=== PATIENT | male | born 1955 | race Caucasian/White ===

== ENCOUNTER 2018-11-12 04:56 | Emergency (ER) | payer MEDICARE ==
[~2018-11-12] VITALS: Ht 177.8 cm; Wt 106.8 kg
[2018-11-12 05:03] VITALS: BP 109/59; Ht 177.8 cm; Wt 106.8 kg
[2018-11-12] MEDS ORDERED: ADVAIR HFA [SP]12 GM INH (05:05)
[2018-11-12] MEDS ORDERED: TRULICITY0.75 MG/0. SC (05:05)
[2018-11-12] MEDS ORDERED: GLIPIZIDE10 MG PO (05:06)
[2018-11-12] MEDS ORDERED: JANUVIA100 MG PO (05:06)
[2018-11-12] MEDS ORDERED: CRESTOR10 MG PO (05:06)
[2018-11-12 05:30] LABS: HEMATOCRIT 41.7 % (42.0-54.0); HEMOGLOBIN 14.8 g/dL (13.5-17.5); LYMPHOCYTES 35.3 % (15-50); MCH 32.9 pg (26.0-34.0); MCHC 35.5 g/dL (31.0-37.0); MCV 92.7 fL (80.0-100.0); MEAN PLATELET VOLUME 9.4 fL (7.4-10.4); NEUTROPHILS 53.2 % (40-80); PLATELET COUNT 51 10x3/uL (130-400); RDW 15.3 % (11.5-14.5); WBC 4.4 10x3/uL (4.8-10.8)
[2018-11-12 05:50] LABS: ALBUMIN 2.9 g/dL (3.4-5.0); ALKALINE PHOSPHATASE 77 U/L (46-116); ALT (SGPT) 9 U/L (10-68); BILIRUBIN - TOTAL 1.54 mg/dL (0.2-1.3); CALC OSMOLALITY 280 mosm/kg (275-300); CALCIUM 9.3 mg/dL (8.5-10.1); CARBON DIOXIDE 21.2 mmol/L (21.0-32.0); CHLORIDE - SERUM 106 mmol/L (98-107); CREATININE - SERUM 0.7 mg/dL (0.6-1.3); GLUCOSE 112 mg/dL (74-106); POTASSIUM - SERUM 3.8 mmol/L (3.5-5.1); PROTEIN - SERUM 7.5 g/dL (6.4-8.2); SODIUM 140 mmol/L (136-145); UREA NITROGEN 15 mg/dL (7-18); eGFR NON AFRICAN AMERICAN > 90 mL/min (90-120)
[2018-11-12 05:51] LABS: PLATELET ESTIMATE DECREASED
[2018-11-12] MEDS ORDERED: CHRONULAC30 ML PO (06:28)
== END 2018-11-12 06:54 | disposition home or self-care (01) ==
LOC: D.ER 04:56
PROVIDERS: Emergency Medicine
DX: R10.9 Unspecified abdominal pain (principal); E72.20 Disorder of urea cycle metabolism, unspecified; F03.90 Unspecified dementia, unspecified severity, without behavioral disturbance, psychotic disturbance, mood disturbance, and anxiety; E11.9 Type 2 diabetes mellitus without complications; J44.9 Chronic obstructive pulmonary disease, unspecified

== ENCOUNTER 2018-12-24 23:35 | Inpatient (IN) | payer MEDICARE ==
[~2018-12-24] VITALS: Ht 177.8 cm; Wt 103.2 kg
[~2018-12-24 23:35] MED LIST: ADVAIR HFA [SP]12 GM INH; CHRONULAC30 ML PO; CRESTOR10 MG PO; GLIPIZIDE10 MG PO; JANUVIA100 MG PO; TRULICITY0.75 MG/0. SC
[2018-12-25] VITALS (21 sets, daily range): BP systolic 103–153; BP diastolic 53–90; BMI 33.2; BMI 33.1
[2018-12-25 00:59] LABS: HEMATOCRIT 42.4 % (42.0-54.0); HEMOGLOBIN 14.7 g/dL (13.5-17.5); MCH 32.2 pg (26.0-34.0); MCHC 34.7 g/dL (31.0-37.0); MCV 92.8 fL (80.0-100.0); MEAN PLATELET VOLUME 11.4 fL (7.4-10.4); PLATELET COUNT 38 10x3/uL (130-400); RBC 4.57 10x6/uL (4.20-6.10); RDW 14.4 % (11.5-14.5)
[2018-12-25 01:13] LABS: ALBUMIN 2.8 g/dL (3.4-5.0); ALKALINE PHOSPHATASE 77 U/L (46-116); ALT (SGPT) 32 U/L (10-68); BILIRUBIN - TOTAL 1.67 mg/dL (0.2-1.3); CALC OSMOLALITY 279 mosm/kg (275-300); CALCIUM 8.3 mg/dL (8.5-10.1); CARBON DIOXIDE 25.4 mmol/L (21.0-32.0); CHLORIDE - SERUM 103 mmol/L (98-107); CREATININE - SERUM 0.7 mg/dL (0.6-1.3); GLUCOSE 169 mg/dL (74-106); PROTEIN - SERUM 7.2 g/dL (6.4-8.2); SODIUM 139 mmol/L (136-145); UREA NITROGEN 8 mg/dL (7-18); eGFR NON AFRICAN AMERICAN > 90 mL/min (90-120)
[2018-12-25 01:24] LABS: INR 5.91 (0.85-1.17)
[2018-12-25 01:38] LABS: EOSINOPHILS 3 % (0-7); LYMPHOCYTES 21 % (15-50); MONOCYTES 6 % (2-11); NEUTROPHILS 68 % (40-80); PLATELET ESTIMATE DECREASED; PLATELET MORPHOLOGY GIANT PLTS PRESENT
[2018-12-25 07:06] LABS: HEMATOCRIT 37.4 % (42.0-54.0); HEMOGLOBIN 13.1 g/dL (13.5-17.5); MCH 32.3 pg (26.0-34.0); MCV 92.3 fL (80.0-100.0); MEAN PLATELET VOLUME 9.1 fL (7.4-10.4); RBC 4.05 10x6/uL (4.20-6.10); RDW 14.5 % (11.5-14.5)
[2018-12-25 07:07] LABS: WBC 3.3 10x3/uL (4.8-10.8)
[2018-12-25 07:09] LABS: PLATELET COUNT 48 10x3/uL (130-400)
[2018-12-25 07:18] LABS: MAGNESIUM - SERUM 1.6 mg/dL (1.8-2.4); PHOSPHOROUS 2.6 mg/dL (2.5-4.9)
[2018-12-25 07:20] LABS: APTT 33.7 SECONDS (22.8-39.4)
[2018-12-25 07:26] LABS: INR 1.29 (0.85-1.17); PROTIME 15.6 SECONDS (11.6-15.0)
[2018-12-25 08:31] LABS: EOSINOPHILS 4 % (0-7); LYMPHOCYTES 20 % (15-50); MONOCYTES 7 % (2-11); NEUTROPHILS 61 % (40-80)
[2018-12-25 08:32] LABS: PLATELET ESTIMATE DECREASED
--- NOTE | 2018-12-25 15:30 | MORECARE ---
CASE MANAGEMENT DISCHARGE SUMMARY PATIENT: KESHA QUINONEZ UNIT: [id number] ADM DATE: 12/25/18 AGE: 63 : 53 SEX: M ROOM/BED: D.2312 AUTHOR: ROMAINE ESCALANTE PHYSICIAN: REFERRING PHYSICIAN: ALEXA THIBODEAUX MD DATE OF SERVICE: 12/25/18 Discharge Plan Patient Name: KESHA QUINONEZ [facility] [facility] 1955 Planned Disposition: Home Anticipated Discharge Date: Discharge Date: Expected LOS: Initial Reviewer: [email or web address] Initial Review Date: 12/25/2018 Generated: 12/25/18 4:30 pm DCPIA - Discharge Planning Initial Assessment Updated by [email or web address]: Rani Sosa on 12/25/18 3:24 pm * Is the patient Alert and Oriented? Yes * How many steps to enter\exit or inside your home? * PCP KESHAWN REYES * Pharmacy [facility] * Preadmission Environment Home with Family * ADLs Independent * Equipment CPAP * List name and contact numbers for known caregivers / representatives who currently or will assist patient after discharge: YASMINE JAY- - [phone] * Verbal permission to speak to the caregivers and representatives has been obtained from the patient. N/A * Community resources currently utilized None * Additional services required to return to the preadmission environment? No * Can the patient safely return to the preadmission environment? Yes * Has this patient been hospitalized within the prior 30 days at any hospital? No Patient Name: KESHA QUINONEZ Page 22884 at 1530 All edits/amendments must be made on the electronic document DICTATION DATE: 12/25/18 1530 EDGE BLACKER: KAY 12/25/18 1530 RPT#: [id number] DC DATE: STATUS: ADM IN [facility] [address] [place] [address] END OF REPORT
--- NOTE | 2018-12-25 15:39 | MORECARE ---
CASE MANAGEMENT DISCHARGE SUMMARY PATIENT: KESHA QUINONEZ UNIT: [id number] ADM DATE: 12/25/18 AGE: 63 : 53 SEX: M ROOM/BED: D.2312 AUTHOR: AVA,DOC PHYSICIAN: REFERRING PHYSICIAN: ALEXA THIBODEAUX MD DATE OF SERVICE: 12/25/18 Discharge Plan Patient Name: KESHA QUINONEZ Facility: [facility]:[place] : 1955 Planned Disposition: Home Anticipated Discharge Date: Discharge Date: Expected LOS: Initial Reviewer: [email or web address] Initial Review Date: 12/25/2018 Generated: 12/25/18 4:39 pm Comments DCP- Discharge Planning Updated by [email or web address]: Rani Sosa on 12/25/18 2:[address] Patient Name: KESHA QUINONEZ Admission Status: ER Accout number: [id number] Admission Date: 12-25-2018 : 1955 Admission Diagnosis:NONTRAUMATIC SUBARACHNOID HEMORRHAGE, UNSPECIFIED Attending: ALEXA SCHNEIDER Current LOS: 1 Anticipated DC Date: Planned Disposition: Home Primary Insurance: HU[employer]NA CHOICE PPO MCR ADVANT Discharge Planning Comments: CM met with patient at bedside. Patient states he lives at home with his Zhane. Patient states that he been trying to stop drinking recently. Patient states that he has CPAP at home but hasn't needed it as much since he has stopped drinking. Patient denies any home health services prior to admission. Patient denies any discharge needs. CM will continue to follow and assist as needed with discharge planning/ needs. Biodiesel Division Manager: Rani Sosa DCPIA - Discharge Planning Initial Assessment Updated by [email or web address]: Rani Sosa on 12/25/18 3:24 pm * Is the patient Alert and Oriented? Yes * How many steps to enter\exit or inside your home? * PCP KESHAWN REYES * Pharmacy [facility] * Preadmission Environment Home with Family * ADLs Independent * Equipment CPAP * List name and contact numbers for known caregivers / representatives who currently or will assist patient after discharge: ZHANE JAY- - [phone] * Verbal permission to speak to the caregivers and representatives has been obtained from the patient. N/A * Community resources currently utilized None * Additional services required to return to the preadmission environment? No * Can the patient safely return to the preadmission environment? Yes * Has this patient been hospitalized within the prior 30 days at any hospital? No Last DP export: 12/25/18 2:30 p Patient Name: KESHA QUIONNEZ Page 94476 at 1539 All edits/amendments must be made on the electronic document DICTATION DATE: 12/25/181537 ACCOUNTS PAYABLE PROFESSIONAL: DM 12/25/181537 RPT#: [id number] DC DATE: STATUS: ADM IN [facility] [address] [place] [address] END OF REPORT
[2018-12-26] VITALS (21 sets, daily range): BP systolic 115–151; BP diastolic 52–76; Ht 177.8 cm; Wt 103.2 kg
[2018-12-26 04:08] LABS: BASOPHILS 0.3 % (0-2); EOSINOPHILS 2.7 % (0-7); HEMATOCRIT 35.8 % (42.0-54.0); HEMOGLOBIN 12.3 g/dL (13.5-17.5); LYMPHOCYTES 25.7 % (15-50); MCH 31.9 pg (26.0-34.0); MCHC 34.4 g/dL (31.0-37.0); NEUTROPHILS 59.3 % (40-80); RBC 3.85 10x6/uL (4.20-6.10); RDW 14.6 % (11.5-14.5); WBC 3.3 10x3/uL (4.8-10.8)
[2018-12-26 04:13] LABS: PLATELET COUNT 43 10x3/uL (130-400)
[2018-12-26 04:20] LABS: CALC OSMOLALITY 279 mosm/kg (275-300); CALCIUM 7.8 mg/dL (8.5-10.1); CARBON DIOXIDE 22.8 mmol/L (21.0-32.0); CHLORIDE - SERUM 106 mmol/L (98-107); CREATININE - SERUM 0.8 mg/dL (0.6-1.3); GLUCOSE 148 mg/dL (74-106); POTASSIUM - SERUM 3.7 mmol/L (3.5-5.1); SODIUM 139 mmol/L (136-145); eGFR NON AFRICAN AMERICAN > 90 mL/min (90-120)
[2018-12-26 04:21] LABS: UREA NITROGEN 11 mg/dL (7-18)
[2018-12-27] VITALS (22 sets, daily range): BP systolic 112–145; BP diastolic 66–95
[2018-12-27 02:58] LABS: BASOPHILS 0.3 % (0-2); EOSINOPHILS 2.1 % (0-7); HEMATOCRIT 35.7 % (42.0-54.0); HEMOGLOBIN 12.5 g/dL (13.5-17.5); LYMPHOCYTES 22.4 % (15-50); MCH 32.4 pg (26.0-34.0); MCV 92.5 fL (80.0-100.0); MEAN PLATELET VOLUME 9.4 fL (7.4-10.4); MONOCYTES 10.9 % (2-11); NEUTROPHILS 64.3 % (40-80); RBC 3.86 10x6/uL (4.20-6.10); RDW 14.3 % (11.5-14.5); WBC 3.3 10x3/uL (4.8-10.8)
[2018-12-27 03:02] LABS: PLATELET COUNT 40 10x3/uL (130-400)
[2018-12-27 03:23] LABS: ALBUMIN 2.5 g/dL (3.4-5.0); ALKALINE PHOSPHATASE 76 U/L (46-116); ALT (SGPT) 46 U/L (10-68); BILIRUBIN - TOTAL 1.13 mg/dL (0.2-1.3); CALC OSMOLALITY 280 mosm/kg (275-300); CALCIUM 8.1 mg/dL (8.5-10.1); CHLORIDE - SERUM 105 mmol/L (98-107); CREATININE - SERUM 0.8 mg/dL (0.6-1.3); POTASSIUM - SERUM 3.7 mmol/L (3.5-5.1); PRO BNP 164 pg/mL (0-125); PROTEIN - SERUM 6.4 g/dL (6.4-8.2); SODIUM 137 mmol/L (136-145); THYROID STIMULATING HORMONE 1.54 uIU/mL (0.36-3.74); UREA NITROGEN 10 mg/dL (7-18); eGFR NON AFRICAN AMERICAN > 90 mL/min (90-120)
[2018-12-27 03:27] LABS: GLUCOSE 236 mg/dL (74-106); PLATELET ESTIMATE DECREASED
[2018-12-27] MEDS ORDERED: CARBIDOPA-LEVO1 EAC2 (11:58)
[2018-12-27] MEDS ORDERED: CARBIDOPA-LEVO1 EAC2 PO (11:59)
[2018-12-28] VITALS (8 sets, daily range): BP systolic 102–127; BP diastolic 58–78
[2018-12-28 06:36] LABS: ALBUMIN 2.5 g/dL (3.4-5.0); ALKALINE PHOSPHATASE 80 U/L (46-116); BILIRUBIN - TOTAL 1.12 mg/dL (0.2-1.3); CALCIUM 8.5 mg/dL (8.5-10.1); CARBON DIOXIDE 25.1 mmol/L (21.0-32.0); CHLORIDE - SERUM 107 mmol/L (98-107); CREATININE - SERUM 0.7 mg/dL (0.6-1.3); MAGNESIUM - SERUM 1.7 mg/dL (1.8-2.4); PHOSPHOROUS 3.6 mg/dL (2.5-4.9); POTASSIUM - SERUM 3.9 mmol/L (3.5-5.1); PROTEIN - SERUM 6.5 g/dL (6.4-8.2); SODIUM 141 mmol/L (136-145); UREA NITROGEN 10 mg/dL (7-18); eGFR NON AFRICAN AMERICAN > 90 mL/min (90-120)
[2018-12-28 06:39] LABS: ALT (SGPT) 15 U/L (10-68); CALC OSMOLALITY 283 mosm/kg (275-300); GLUCOSE 172 mg/dL (74-106)
[2018-12-28 06:51] LABS: HEMOGLOBIN 12.7 g/dL (13.5-17.5); MCH 32.2 pg (26.0-34.0); MCHC 34.3 g/dL (31.0-37.0); MCV 93.7 fL (80.0-100.0); MEAN PLATELET VOLUME 10.2 fL (7.4-10.4); RBC 3.95 10x6/uL (4.20-6.10); RDW 14.8 % (11.5-14.5); WBC 3.1 10x3/uL (4.8-10.8)
[2018-12-28 06:52] LABS: PLATELET COUNT 50 10x3/uL (130-400)
[2018-12-28 08:56] LABS: EOSINOPHILS 2 % (0-7); LYMPHOCYTES 16 % (15-50); MONOCYTES 8 % (2-11); NEUTROPHILS 71 % (40-80); PLATELET ESTIMATE DECREASED
--- NOTE | 2018-12-28 16:27 | MORECARE ---
CASE MANAGEMENT DISCHARGE SUMMARY PATIENT: KESHA QUINONEZ UNIT: [id number] ADM DATE: 12/25/18 AGE: 63 : 53 SEX: M ROOM/BED: D.2312 AUTHOR: AVA,DOC PHYSICIAN: REFERRING PHYSICIAN: ALEXA THIBODEAUX MD DATE OF SERVICE: 12/28/18 Discharge Plan Patient Name: KESHA QUINONEZ Facility: [facility]:[place] : 1955 Planned Disposition: Home Anticipated Discharge Date: Discharge Date: 12/28/2018 Expected LOS: Initial Reviewer: [email or web address] Initial Review Date: 12/25/2018 Generated: 12/28/18 5:27 pm Comments DCP- Discharge Planning Updated by [email or web address]: Rani Sosa on 12/25/18 2:[address] Patient Name: KESHA QUINONEZ Admission Status: ER Accout number: [id number] Admission Date: 12-25-2018 : 1955 Admission Diagnosis:NONTRAUMATIC SUBARACHNOID HEMORRHAGE, UNSPECIFIED Attending: ALEXA SCHNEIDER Current LOS: 1 Anticipated DC Date: Planned Disposition: Home Primary Insurance: HU[employer]NA CHOICE PPO MCR ADVANT Discharge Planning Comments: CM met with patient at bedside. Patient states he lives at home with his Zhane. Patient states that he been trying to stop drinking recently. Patient states that he has CPAP at home but hasn't needed it as much since he has stopped drinking. Patient denies any home health services prior to admission. Patient denies any discharge needs. CM will continue to follow and assist as needed with discharge planning/ needs. Assembler Fluorescent Lights: Rani Sosa DCPIA - Discharge Planning Initial Assessment Updated by [email or web address]: Rani Sosa on 12/25/18 3:24 pm * Is the patient Alert and Oriented? Yes * How many steps to enter\exit or inside your home? * PCP KESHAWN REYES * Pharmacy [facility] * Preadmission Environment Home with Family * ADLs Independent * Equipment CPAP * List name and contact numbers for known caregivers / representatives who currently or will assist patient after discharge: ZHANE JAY- - [phone] * Verbal permission to speak to the caregivers and representatives has been obtained from the patient. N/A * Community resources currently utilized None * Additional services required to return to the preadmission environment? No * Can the patient safely return to the preadmission environment? Yes * Has this patient been hospitalized within the prior 30 days at any hospital? No Last DP export: 12/25/18 2:39 p Patient Name: KESHA QUINONEZ Page 92507 at 1627 All edits/amendments must be made on the electronic document DICTATION DATE: 12/28/181626 DOG BATHER: KAY 12/28/181626 RPT#: [id number] DC DATE:12/28/18 STATUS: DIS IN [facility] [address] [place] [address] END OF REPORT
--- NOTE | 2018-12-28 19:00 | MORECARE ---
CASE MANAGEMENT DISCHARGE SUMMARY PATIENT: KESHA QUINONEZ UNIT: [id number] ADM DATE: 12/25/18 AGE: 63 : 51 SEX: M ROOM/BED: D.2312 AUTHOR: AVA,DOC PHYSICIAN: REFERRING PHYSICIAN: ALEXA THIBODEAUX MD DATE OF SERVICE: 12/28/18 Discharge Plan Patient Name: KESHA QUINONEZ Facility: [facility]:[place] : 1955 Planned Disposition: Home Anticipated Discharge Date: Discharge Date: 12/28/2018 Expected LOS: Initial Reviewer: [email or web address] Initial Review Date: 12/25/2018 Generated: 12/28/18 7:59 pm Comments DCP- Discharge Planning Updated by [email or web address]: Rani Sosa on 12/28/18 5:[address] D/C IMM EXPLAINED AND SERVED 12/28/18 @ [facility]. DENIES ANY DISCHARGE NEEDS. CM will continue to follow and assist as needed with discharge planning / needs. DCP- Discharge Planning Updated by [email or web address]: Rani Sosa on 12/25/18 2:[address] Patient Name: KESHA QUINONEZ Admission Status: ER Accout number: [id number] Admission Date: 12-25-2018 : 1955 Admission Diagnosis:NONTRAUMATIC SUBARACHNOID HEMORRHAGE, UNSPECIFIED Attending: ALEXA SCHNEIDER Current LOS: 1 Anticipated DC Date: Planned Disposition: Home Primary Insurance: HUMANA CHOICE PPO MCR [facility] Discharge Planning Comments: CM met with patient at bedside. Patient states he lives at home with his Zhane. Patient states that he been trying to stop drinking recently. Patient states that he has CPAP at home but hasn't needed it as much since he has stopped drinking. Patient denies any home health services prior to admission. Patient denies any discharge needs. CM will continue to follow and assist as needed with discharge planning/ needs. Mechanical Laboratory Technician: Rani Sosa DCPIA - Discharge Planning Initial Assessment Updated by [email or web address]: Rani Sosa on 12/25/18 3:24 pm * Is the patient Alert and Oriented? Yes * How many steps to enter\exit or inside your home? * PCP KESHAWN REYES * Pharmacy [facility] * Preadmission Environment Home with Family * ADLs Independent * Equipment CPAP * List name and contact numbers for known caregivers / representatives who currently or will assist patient after discharge: ZHANE JAY- - [phone] * Verbal permission to speak to the caregivers and representatives has been obtained from the patient. N/A * Community resources currently utilized None * Additional services required to return to the preadmission environment? No * Can the patient safely return to the preadmission environment? Yes * Has this patient been hospitalized within the prior 30 days at any hospital? No Coverage Notice Reviewer: [email or web address] Maria Luisa Sosa Notice Issued Date-Time: 12/28/2018 13:55 Notice Type: IM Discharge Notice Notice Delivered To: Patient Relationship to Patient: Self Metal Hanging Helper Name: Delivery Method: HAND - Hand Delivered Arlin Days: Prior Verbal Notification: Recipient Understood Notice: Yes Recipient Signature: Yes Med Rec Note Co-signed by Attending: Coverage Notice Comment: Last DP export: 12/28/18 3:27 p Patient Name: KESHA QUINONEZ Page 44465 at 1900 All edits/amendments must be made on the electronic document DICTATION DATE: 12/28/181858 HIGH PRESSURE BOILER OPERATOR: KAY 12/28/181858 RPT#: [id number] DC DATE:12/28/18 STATUS: DIS IN [facility] [address] [place] [address] END OF REPORT
[2018-12-29 10:22] LABS: HEPATITIS C ANTIBODY 0.1 S/CO RAT (0.0-0.9)
== END 2018-12-28 15:27 | disposition home or self-care (01) | DRG 83 ==
LOC: D.ER 23:35 → D.ICU 12-25 01:48
PROVIDERS: Family Medicine; Internal Medicine Hematology & Oncology; ADMIT Family Medicine Adult Medicine
PROC: 0HQ0XZZ Repair Scalp Skin, External Approach (ICD-10-PCS; principal; 2018-12-25)
DX: S06.6X9A Traumatic subarachnoid hemorrhage with loss of consciousness of unspecified duration, initial encounter (principal); D68.9 Coagulation defect, unspecified; S01.01XA Laceration without foreign body of scalp, initial encounter; W19.XXXA Unspecified fall, initial encounter; G20 Parkinson's disease; E78.5 Hyperlipidemia, unspecified; E11.9 Type 2 diabetes mellitus without complications; K70.30 Alcoholic cirrhosis of liver without ascites; J44.9 Chronic obstructive pulmonary disease, unspecified; D69.6 Thrombocytopenia, unspecified

== ENCOUNTER 2019-04-22 05:46 | Inpatient (IN) | payer MEDICARE ==
[~2019-04-22 05:46] MED LIST changes: +CARBIDOPA-LEVO1 EAC2; +CARBIDOPA-LEVO1 EAC2 PO
--- NOTE | 2019-04-22 06:02 | NUR ---
PT WITH C COLLAR IN PLACE UPON ARRIVAL. DENIES HEAD OR NECK INJURY.
--- NOTE | 2019-04-22 06:52 | NUR ---
URINE COLLECTED VIA HERNANDEZ CATH AND SENT TO LAB.
--- NOTE | 2019-04-22 06:52 | NUR ---
BLADDER SCANNER PER EDP. PT BLADDER SCANNED, AMOUNT 567 ML IN BLADDER.
[2019-04-22 07:00] LABS: BASOPHILS 0.2 % (0-2); EOSINOPHILS 2.2 % (0-7); HEMATOCRIT 43.2 % (42.0-54.0); HEMOGLOBIN 15.2 g/dL (13.5-17.5); LYMPHOCYTES 21.3 % (15-50); MCH 32.6 pg (26.0-34.0); MCHC 35.2 g/dL (31.0-37.0); MCV 92.7 fL (80.0-100.0); MEAN PLATELET VOLUME 10.3 fL (7.4-10.4); MONOCYTES 9.9 % (2-11); NEUTROPHILS 66.4 % (40-80); RBC 4.66 10x6/uL (4.20-6.10); RDW 14.7 % (11.5-14.5); WBC 4.9 10x3/uL (4.8-10.8)
--- NOTE | 2019-04-22 07:20 | NUR ---
TO CT VIA STRETCHER WITH VENTURE CAPITALIST
[2019-04-22 07:22] LABS: PLATELET COUNT 41 10x3/uL (130-400)
[2019-04-22 07:24] LABS: ALBUMIN 3.2 g/dL (3.4-5.0); ALKALINE PHOSPHATASE 63 U/L (46-116); ALT (SGPT) 38 U/L (10-68); BILIRUBIN - TOTAL 2.24 mg/dL (0.2-1.3); CALC OSMOLALITY 281 mosm/kg (275-300); CALCIUM 9.1 mg/dL (8.5-10.1); CARBON DIOXIDE 24.1 mmol/L (21.0-32.0); CHLORIDE - SERUM 105 mmol/L (98-107); GLUCOSE 141 mg/dL (74-106); MAGNESIUM - SERUM 1.9 mg/dL (1.8-2.4); POTASSIUM - SERUM 3.9 mmol/L (3.5-5.1); PROTEIN - SERUM 7.4 g/dL (6.4-8.2); SODIUM 140 mmol/L (136-145); UREA NITROGEN 15 mg/dL (7-18); eGFR NON AFRICAN AMERICAN 80 mL/min (90-120)
--- NOTE | 2019-04-22 07:24 | NUR ---
RCVD TC FROM LAB PLT COUNT= 41 DR BULLARD NOTIFIED
[2019-04-22 07:27] LABS: APPEARANCE TURBID (CLEAR); BILIRUBIN NEGATIVE (NEGATIVE); COLOR DK YELLOW (YELLOW); GLUCOSE NEGATIVE (NEGATIVE); KETONE SMALL mg/dL (NEGATIVE); NITRITE POSITIVE (NEGATIVE); PROTEIN TRACE mg/dL (NEGATIVE); SPECIFIC GRAVITY 1.015 (1.005-1.020); UROBILINOGEN NORMAL (NORMAL); WHITE CELLS - URINE 25-50 /hpf (0-5)
[2019-04-22 07:28] LABS: AMORPHOUS SEDIMENT >1+ /lpf (NONE SEEN); BACTERIA MODERATE /hpf (NONE SEEN); EPITHELIAL CELLS 0-5 /hpf (0-5); GRANULAR CAST RARE /lpf (NONE SEEN); MUCUS <1+ /lpf (NONE SEEN)
--- NOTE | 2019-04-22 07:35 | NUR ---
PT ARRIVED TO ROOM VIA STRETCHER FROM MEDICAL IMAGING. DENIES PAIN.
[2019-04-22 07:59] VITALS: BP 122/65
--- NOTE | 2019-04-22 08:16 | NUR ---
REPORT CALLED TO ANDRA BOUNRE BY SBAR FORMAT
--- NOTE | 2019-04-22 08:20 | NUR ---
TRANSPORTED TO FLOOR, CONDITION STABLE. ROCEPHIN INFUSING UPON TX TO FLOOR
[2019-04-22 08:35] LABS: PLATELET ESTIMATE DECREASED
[2019-04-22 08:36] LABS: ANISOCYTOSIS OCC
[2019-04-22 08:37] VITALS: BP 122/65; BMI 33.7
[2019-04-22 11:40] LABS: INR 1.33 (0.85-1.17); PROTIME 15.9 SECONDS (11.6-15.0)
[2019-04-22 11:41] LABS: APTT 41.6 SECONDS (22.8-39.4)
[2019-04-22 12:23] VITALS: BP 112/62
--- NOTE | 2019-04-22 14:26 | MORECARE ---
CASE MANAGEMENT DISCHARGE SUMMARY PATIENT: KESHA QUINONEZ UNIT: [id number] ADM DATE: 04/22/19 AGE: 63 : 53 SEX: M ROOM/BED: D.1208 AUTHOR: ROMAINE ESCALANTE PHYSICIAN: REFERRING PHYSICIAN: CORA LOPEZ MD DATE OF SERVICE: 04/22/19 Discharge Plan Patient Name: KESHA QUINONEZ Facility: [facility]:[place] : 1955 Planned Disposition: Anticipated Discharge Date: Discharge Date: Expected LOS: Initial Reviewer: [email or web address] Initial Review Date: 04/22/2019 Generated: 04/22/19 3:26 pm DCP- Discharge Planning Updated by [email or web address]: Erlinda Cooper on 04/22/19 1:[address] Patient Name: KESHA QUINONEZ Admission Status: ER Accout number: [id number] Admission Date: 04-22-2019 : 1955 Admission Diagnosis: Attending: CORA LOPEZ Current LOS: 1 Anticipated DC Date: Planned Disposition: Primary Insurance: HU[employer]NA CHOICE PPO MCR ADVANT Discharge Planning Comments: CM MET WITH PATIENT ABOUT DC NEEDS. PATIENT STATES PLANS TO DC TO HOME WITH . DENIES ANY NEEDS, CM WILL FOLLOW AND ASSIST NEEDED WITH DC PLANNING/NEEDS. Softball Core Molder: Erlinda Cooper DCPIA - Discharge Planning Initial Assessment Updated by [email or web address]: Erlinda Cooper on 04/22/19 2:23 pm * Is the patient Alert and Oriented? Yes * PCP KAUFMAN * Pharmacy [facility] * Preadmission Environment Home with Family * ADLs Independent * Equipment CPAP * List name and contact numbers for known caregivers / representatives who currently or will assist patient after discharge: KRISTEN UNDERWOOD, * Verbal permission to speak to the caregivers and representatives has been obtained from the patient. Yes * Community resources currently utilized None * Additional services required to return to the preadmission environment? No * Can the patient safely return to the preadmission environment? Yes * Has this patient been hospitalized within the prior 30 days at any hospital? No Patient Name: KESHA QUINONEZ Page 86543 at 1426 All edits/amendments must be made on the electronic document DICTATION DATE: 04/22/191424 CERTIFIED ORTHOTIC FITTER: KAY 04/22/191424 RPT#: [id number] DC DATE: STATUS: ADM IN [facility] [address] [place] [address] END OF REPORT
[2019-04-22 16:09] VITALS: BP 120/70
--- NOTE | 2019-04-22 19:30 | NUR ---
PT IN BATHROOM. DIARRHEA NOTED. ASSISTED BACK TO BED. PT TAKING CHRONULAC. ALERT AND ORIENTED X4. CONFUSED/FORGETFUL AT TIMES. GAIT IS VERY UNSTEADY. AMB WITH ASSIST X2. RESP EVEN AND NONLABORED. HERNANDEZ CATH PATENT AND DRAINING DARK YELLOW URINE. INCONT OF BOWELS AT TIMES. BRUISES NOTED TO BUE. NS @ 75 MLHR INFUSING IN LT HAND WITHOUT DIFF. SR ELEVATED X2. CL IN REACH.
[2019-04-22 20:00] VITALS: BP 105/61
[2019-04-22 20:05] VITALS: BP 105/61
[2019-04-23 00:15] VITALS: BP 120/64
--- NOTE | 2019-04-23 01:51 | NUR ---
RESTING WITH EYES CLOSED AT THIS TIME. HAS BEEN AWAKE MOST OF NIGHT UNTIL NOW. SEVERAL EPISODES OF DIARRHEA NOTED. SR ELEVATED X2. CL IN REACH. ELISEO ALARM ON FOR PT SAFETY.
[2019-04-23 04:28] VITALS: BP 123/77
--- NOTE | 2019-04-23 07:19 | NUR ---
THE PATIENT APPEARED TO BE SLEEPING BUT EASILY AWOKE WHEN STAFF ENTERED HER ROOM. BED IS IN THE LOW POSITION WITH SIDERAILS X2 AND CALL LIGHT WITHIN REACH. THE PATIENT DEMONSTRATES THE NEED TO CALL FOR STAFF WHENEVER HE WANTS TO GET OUT OF BED. THE PATIENT APPEARS COMFORTABLE WITH NO QUESTIONS OR CONCERNS AT THIS TIME.
[2019-04-23 07:21] LABS: HEMATOCRIT 37.2 % (42.0-54.0); HEMOGLOBIN 13.1 g/dL (13.5-17.5); MCH 32.4 pg (26.0-34.0); MCHC 35.2 g/dL (31.0-37.0); MCV 92.1 fL (80.0-100.0); MEAN PLATELET VOLUME 9.9 fL (7.4-10.4); RBC 4.04 10x6/uL (4.20-6.10); RDW 14.4 % (11.5-14.5)
[2019-04-23 07:29] LABS: PLATELET COUNT 28 10x3/uL (130-400); WBC 2.3 10x3/uL (4.8-10.8)
--- NOTE | 2019-04-23 07:32 | NUR ---
CRITICAL LAB CALLED TO ON-CALL AT 8870. PLATLETS ARE 28, WICH IS DOWN FROM 41.
[2019-04-23 07:34] LABS: ALBUMIN 2.6 g/dL (3.4-5.0); ALKALINE PHOSPHATASE 55 U/L (46-116); BILIRUBIN - TOTAL 1.51 mg/dL (0.2-1.3); CALCIUM 8.3 mg/dL (8.5-10.1); CARBON DIOXIDE 22.9 mmol/L (21.0-32.0); CHLORIDE - SERUM 110 mmol/L (98-107); CREATININE - SERUM 0.8 mg/dL (0.6-1.3); GLUCOSE 129 mg/dL (74-106); POTASSIUM - SERUM 3.6 mmol/L (3.5-5.1); PROTEIN - SERUM 6.2 g/dL (6.4-8.2); SODIUM 141 mmol/L (136-145); eGFR NON AFRICAN AMERICAN > 90 mL/min (90-120)
[2019-04-23 07:36] LABS: ALT (SGPT) 19 U/L (10-68); CALC OSMOLALITY 281 mosm/kg (275-300); UREA NITROGEN 11 mg/dL (7-18)
[2019-04-23 08:02] VITALS: BP 102/70
[2019-04-23 09:03] VITALS: BMI 33.7
[2019-04-23 09:56] LABS: EOSINOPHILS 2 % (0-7); LYMPHOCYTES 51 % (15-50); MONOCYTES 3 % (2-11); NEUTROPHILS 44 % (40-80); PLATELET ESTIMATE DECREASED
[2019-04-23 13:26] VITALS: BP 118/64
[2019-04-23 14:30] VITALS: BP 123/67
[2019-04-23 14:35] VITALS: BMI 33.7
[2019-04-23 20:00] VITALS: BP 128/68
--- NOTE | 2019-04-23 20:04 | NUR ---
PATIENT RESTING IN BED AND REQUESTED THE DOCTOR BE CALLED IN REGARDS TO ORDERING HIS HOME DOSE OF FLEXERIL. I TOLD THE PATIENT THAT I WOULD CONTACT THE PHARMACY AND THE ANESTHESIOLOGY TEACHER PHYSICIAN.PATIENT DENIES OTHER NEEDS AT THIS TIME.
[2019-04-23] MEDS ORDERED: CYCLOBENZAPRINE10 MG PO (20:09)
--- NOTE | 2019-04-23 20:40 | NUR ---
AFTER CALLING BRANDON TO CONFIRM THE PATIENT'S SCRIPT FOR FLEXERIL, I SPOKE WITH AGUSTO IN REGARDS TO MEDICATION. AGUSTO ORDERED FLEXERIL ACCORDING TO THE PATIENT'S HOME DOSE.
[2019-04-24] VITALS (8 sets, daily range): BP systolic 108–137; BP diastolic 59–72
[2019-04-24 02:55] LABS: BASOPHILS 0 % (0-2); EOSINOPHILS 4.4 % (0-7); HEMATOCRIT 36.4 % (42.0-54.0); HEMOGLOBIN 12.5 g/dL (13.5-17.5); LYMPHOCYTES 34.4 % (15-50); MCH 32.1 pg (26.0-34.0); MCHC 34.3 g/dL (31.0-37.0); MCV 93.6 fL (80.0-100.0); MEAN PLATELET VOLUME 10.1 fL (7.4-10.4); MONOCYTES 8.7 % (2-11); NEUTROPHILS 52.5 % (40-80); RBC 3.89 10x6/uL (4.20-6.10); RDW 14.6 % (11.5-14.5)
[2019-04-24 02:59] LABS: INR 1.33 (0.85-1.17); PLATELET COUNT 28 10x3/uL (130-400); PROTIME 15.9 SECONDS (11.6-15.0); WBC 1.8 10x3/uL (4.8-10.8)
[2019-04-24 03:09] LABS: ALBUMIN 2.5 g/dL (3.4-5.0); ALKALINE PHOSPHATASE 58 U/L (46-116); ALT (SGPT) 16 U/L (10-68); BILIRUBIN - TOTAL 0.78 mg/dL (0.2-1.3); CALC OSMOLALITY 283 mosm/kg (275-300); CALCIUM 8.2 mg/dL (8.5-10.1); CARBON DIOXIDE 24.3 mmol/L (21.0-32.0); CHLORIDE - SERUM 109 mmol/L (98-107); CREATININE - SERUM 0.8 mg/dL (0.6-1.3); GLUCOSE 165 mg/dL (74-106); POTASSIUM - SERUM 3.7 mmol/L (3.5-5.1); PROTEIN - SERUM 6.1 g/dL (6.4-8.2); SODIUM 141 mmol/L (136-145); UREA NITROGEN 10 mg/dL (7-18); eGFR NON AFRICAN AMERICAN > 90 mL/min (90-120)
[2019-04-24 09:12] LABS: FOLATE (FOLIC ACID) - SERUM >20.0 ng/mL (>3.0)
--- NOTE | 2019-04-24 19:42 | NUR ---
PATIENT RESTING IN BED WITH NO S/S OF DISTRESS. RT AT BEDSIDE. PATIENT DENIES NEEDS AT THIS TIME. BED IN LOWEST POSITION AND CALL LIGHT WITHIN REACH. ENCOURAGED THE PATIENT TO CALL IF HE HAS NEEDS. WILL CONTINUE TO MONITOR.
[2019-04-25 00:39] VITALS: BP 128/60
[2019-04-25 04:23] LABS: BASOPHILS 0 % (0-2); EOSINOPHILS 3.3 % (0-7); HEMATOCRIT 35.7 % (42.0-54.0); HEMOGLOBIN 12.3 g/dL (13.5-17.5); LYMPHOCYTES 16.9 % (15-50); MCH 32.1 pg (26.0-34.0); MCHC 34.5 g/dL (31.0-37.0); MCV 93.2 fL (80.0-100.0); MONOCYTES 8.7 % (2-11); NEUTROPHILS 68.1 % (40-80); RBC 3.83 10x6/uL (4.20-6.10); RDW 14.8 % (11.5-14.5)
[2019-04-25 04:31] LABS: WBC 3.3 10x3/uL (4.8-10.8)
[2019-04-25 04:32] LABS: PLATELET COUNT 37 10x3/uL (130-400)
[2019-04-25 04:36] LABS: ALBUMIN 2.4 g/dL (3.4-5.0); ALKALINE PHOSPHATASE 56 U/L (46-116); BILIRUBIN - TOTAL 0.87 mg/dL (0.2-1.3); CALCIUM 8.3 mg/dL (8.5-10.1); CARBON DIOXIDE 22.1 mmol/L (21.0-32.0); CHLORIDE - SERUM 108 mmol/L (98-107); CREATININE - SERUM 0.8 mg/dL (0.6-1.3); GLUCOSE 189 mg/dL (74-106); POTASSIUM - SERUM 3.5 mmol/L (3.5-5.1); PROTEIN - SERUM 5.8 g/dL (6.4-8.2); SODIUM 140 mmol/L (136-145); eGFR NON AFRICAN AMERICAN > 90 mL/min (90-120)
[2019-04-25 04:37] LABS: ALT (SGPT) 25 U/L (10-68); CALC OSMOLALITY 281 mosm/kg (275-300); INR 1.35 (0.85-1.17); PROTIME 16.1 SECONDS (11.6-15.0); UREA NITROGEN 7 mg/dL (7-18)
[2019-04-25 07:28] VITALS: BP 138/66
--- NOTE | 2019-04-25 09:47 | NUR ---
PATIENT WATCHING TV. PHONE ON AUTOMOBILE MECHANIC ASSISTANT AT HIS LEFT SHOULDER. CL IN REACH. NO NEEDS AT THIS TIME. WCTM
[2019-04-25 11:54] VITALS: BP 117/66
--- NOTE | 2019-04-25 12:22 | NUR ---
PATIENT UP IN CHAIR. CL IN REACH. NO NEEDS AT THIS TIME.
[2019-04-25 15:22] VITALS: BP 115/55
--- NOTE | 2019-04-25 19:43 | NUR ---
PATIENT UP TO RESTROOM AND REQUESTED HELP FROM MALE CMO & PRESIDENT. VANGIE SIUA ASSISTING THE PATIENT AT THIS TIME. WILL CONTINUE TO MONITOR.
[2019-04-25 20:19] VITALS: BP 121/60
[2019-04-26 06:15] LABS: BASOPHILS 0.2 % (0-2); EOSINOPHILS 2.7 % (0-7); HEMATOCRIT 36.5 % (42.0-54.0); HEMOGLOBIN 12.5 g/dL (13.5-17.5); IMMATURE GRANULOCYTES 1.6 % (0-5); LYMPHOCYTES 14.6 % (15-50); MCH 32.3 pg (26.0-34.0); MCHC 34.2 g/dL (31.0-37.0); MCV 94.3 fL (80.0-100.0); MEAN PLATELET VOLUME 9.9 fL (7.4-10.4); MONOCYTES 7.6 % (2-11); NEUTROPHILS 73.3 % (40-80); RBC 3.87 10x6/uL (4.20-6.10); RDW 15.5 % (11.5-14.5)
[2019-04-26 06:25] LABS: PLATELET COUNT 35 10x3/uL (130-400); WBC 4.4 10x3/uL (4.8-10.8)
[2019-04-26 06:35] LABS: INR 1.24 (0.85-1.17)
[2019-04-26 06:40] LABS: ALBUMIN 2.6 g/dL (3.4-5.0); ALKALINE PHOSPHATASE 64 U/L (46-116); ALT (SGPT) 30 U/L (10-68); BILIRUBIN - TOTAL 0.73 mg/dL (0.2-1.3); CALC OSMOLALITY 286 mosm/kg (275-300); CALCIUM 8.9 mg/dL (8.5-10.1); CARBON DIOXIDE 24.4 mmol/L (21.0-32.0); CHLORIDE - SERUM 108 mmol/L (98-107); CREATININE - SERUM 0.7 mg/dL (0.6-1.3); GLUCOSE 204 mg/dL (74-106); POTASSIUM - SERUM 3.6 mmol/L (3.5-5.1); SODIUM 142 mmol/L (136-145); UREA NITROGEN 8 mg/dL (7-18); eGFR NON AFRICAN AMERICAN > 90 mL/min (90-120)
--- NOTE | 2019-04-26 07:34 | NUR ---
ROUNDING DONE WITH PATIENT BEING CLEANED UP BY MYSELF AND FAMILY MEMBER FROM INCONT OF STOOL. SOFT, FORMED, BROWN. NO SKIN ISSUES SEEN. ON ROOM AIR. ALL EXTREMIITES ARE CONTRACTED. NPO STATUS FOR BE TODAY. 2+ EDEMA SEEN TO BILATERAL FEET. TOTAL CARE PATIENT WITH HX OF CP.
--- NOTE | 2019-04-26 07:38 | NUR ---
ROUNDING DONE WTIH PATIENT SITTING UP IN BED FOR BREAKFAST. ON ROOM AIR. LEFT FA PIV SEEN NS INFUSING AT 75 CC/HR. HERNANDEZ CATH PATENT WITH CLEAR YELLOW URINE. ON EP, K+ IS 3.6. IN REPORT, HX OF [facility]. BED ALARM IS ON AND IN USE. P;T ARE 35 TODAY. WILL MONITOR.
[2019-04-26 08:01] VITALS: BP 117/88
[2019-04-26 08:11] LABS: PLATELET ESTIMATE DECREASED
[2019-04-26 08:15] LABS: ROULEAUX OCC
[2019-04-26 08:16] LABS: ANISOCYTOSIS OCC
--- NOTE | 2019-04-26 08:21 | NUR ---
NO AMMONIA LEVEL SEEN SINCE 04/22. THIS IS ORDERED NOW TO SEE WHAT LEVEL IS IF NEEDED TO CONTINUE IT. AWAIT RESULTS.
--- NOTE | 2019-04-26 09:07 | NUR ---
LAB RESULT FOR AMMONIA IS 24, WNL. PAGE INTO SJ MONTIEL APN TO SEE ABOUT CHRONULAC DOSE.
--- NOTE | 2019-04-26 09:20 | NUR ---
DR HADLEY HERE TO SEE PATIENT.
[2019-04-26] MEDS ORDERED: CHRONULAC30 ML PO (09:41)
[2019-04-26] MEDS ORDERED: FLOMAX0.4 MG PO (09:55)
[2019-04-26] MEDS ORDERED: LEVAQUIN750 MG PO (09:57)
--- NOTE | 2019-04-26 10:09 | NUR ---
HERNANDEZ CATH REMOVAL PAST BULB DEFLATION. PATIENT IS INSTRUCTED TO USE THE URINAL TO VOID IN. INFORMED THERE MIGHT BE SOME BURNING AND STINGING WITH FIRST VOID.
--- NOTE | 2019-04-26 10:51 | MORECARE ---
CASE MANAGEMENT DISCHARGE SUMMARY PATIENT: KESHA QUINONEZ UNIT: [id number] ADM DATE: 04/22/19 AGE: 63 : 51 SEX: M ROOM/BED: D.1208 AUTHOR: AVADOC PHYSICIAN: REFERRING PHYSICIAN: CORA LOPEZ MD DATE OF SERVICE: 04/26/19 Discharge Plan Patient Name: KESHA QUINONEZ Facility: [facility]:[place] : 1955 Planned Disposition: Anticipated Discharge Date: Discharge Date: Expected LOS: Initial Reviewer: [email or web address] Initial Review Date: 04/22/2019 Generated: 04/26/19 11:50 am Comments DCP- Discharge Planning Updated by [email or web address]: Madeline Wademan on 04/26/19 9:[address] Patient Name: KESHA QUINONEZ Admission Status: ER Accout number: [id number] Admission Date: 04-22-2019 : 1955 Admission Diagnosis:URINARY TRACT INFECTION, SITE NOT SPECIFIED Attending: CORA LOPEZ Current LOS: 4 Anticipated DC Date: Planned Disposition: Primary Insurance: HUMANA CHOICE PPO MCR ADVANT Discharge Planning Comments: Mother Repairer: Madeline WademanPatient Name: KESHA QUINONEZ Admission Status: ER Accout number: [id number] Admission Date: 04-22-2019 : 1955 Admission Diagnosis:URINARY TRACT INFECTION, SITE NOT SPECIFIED Attending: CORA LOPEZ Current LOS: 4 Anticipated DC Date: Planned Disposition: Primary Insurance: HUMANA CHOICE PPO MCR ADVANT Discharge Planning Comments: Mother Repairer: Madeline NoelPatient Name: KESHA QUINONEZ Admission Status: ER Accout number: [id number] Admission Date: 04-22-2019 : 1955 Admission Diagnosis:URINARY TRACT INFECTION, SITE NOT SPECIFIED Attending: CORA LOPEZ Current LOS: 4 Anticipated DC Date: Planned Disposition: Primary Insurance: HUMANA CHOICE PPO MCR ADVANT Discharge Planning Comments: Mother Repairer: Madeline NoelPatient Name: KESHA QUINONEZ Admission Status: ER Accout number: [id number] Admission Date: 04-22-2019 : 1955 Admission Diagnosis:URINARY TRACT INFECTION, SITE NOT SPECIFIED Attending: CORA LOPEZ Current LOS: 4 Anticipated DC Date: Planned Disposition: Primary Insurance: HUMANA CHOICE PPO MCR ADVANT Discharge Planning Comments: PT WILL GO WITH AND [facility]SC. PT SIGNED PHAN FOR [facility]. ORDERS FAXED TO PROVIDERS. Mother Repairer: Madeline Noel DCP- Discharge Planning Updated by [id number]: Erlinda Cooper on 04/22/19 1:[address] Patient Name: KESHA QUINONEZ Admission Status: ER Accout number: [id number] Admission Date: 04-22-2019 : 1955 Admission Diagnosis: Attending: CORA LOPEZ Current LOS: 1 Anticipated DC Date: Planned Disposition: Primary Insurance: HUMANA CHOICE PPO MCR ADVANT Discharge Planning Comments: CM MET WITH PATIENT ABOUT DC NEEDS. PATIENT STATES PLANS TO DC TO HOME WITH . DENIES ANY NEEDS, CM WILL FOLLOW AND ASSIST NEEDED WITH DC PLANNING/NEEDS. Mother Repairer: Erlinda Cooper DCPIA - Discharge Planning Initial Assessment Updated by [email or web address]: Erlinda Cooper on 04/22/19 2:23 pm * Is the patient Alert and Oriented? Yes * PCP BONIFAY * Pharmacy [facility] [address] * Preadmission Environment Home with Family * ADLs Independent * Equipment CPAP * List name and contact numbers for known caregivers / representatives who currently or will assist patient after discharge: KRISTEN UNDERWOOD, * Verbal permission to speak to the caregivers and representatives has been obtained from the patient. Yes * Community resources currently utilized None * Additional services required to return to the preadmission environment? No * Can the patient safely return to the preadmission environment? Yes * Has this patient been hospitalized within the prior 30 days at any hospital? No Coverage Notice Reviewer: [id number] - Madeline Noel Notice Issued Date-Time: 04/25/2019 15:00 Notice Type: IM Discharge Notice Notice Delivered To: Patient Relationship to Patient: Self Blanking Press Operator Name: Delivery Method: HAND - Hand Delivered Arlin Days: Prior Verbal Notification: Recipient Understood Notice: Yes Recipient Signature: Yes Med Rec Note Co-signed by Attending: Coverage Notice Comment: Last DP export: 04/22/19 1:26 p Patient Name: KESHA QUINONEZ Page 08432 at 1051 All edits/amendments must be made on the electronic document DICTATION DATE: 04/26/19 105 LPN CARE MANAGER: KAY 04/26/19 105 RPT#: [id number] DC DATE: STATUS: ADM IN [facility] [address] [place] [address] END OF REPORT
[2019-04-26 11:46] VITALS: BP 122/62
--- NOTE | 2019-04-26 12:19 | NUR ---
PATIENT WANTS HIS IV LEVAQUID BEFORE DISCHARGE.
--- NOTE | 2019-04-26 12:21 | NUR ---
RD follow up: Spoke with patient last week on 04/23/19 regarding ADA diet per pt request. Followed up today with written material to use for reference. Pt tolerating diet well. Being discharged today.
[2019-04-26 15:03] VITALS: BP 118/65
--- NOTE | 2019-04-26 15:35 | NUR ---
VERBAL AND WRITTEN DISCHARGE INSTRUCTIONS GIVEN TO PATIENT AND ALONG WITH INFO R/T LOW BACTERIA DIET. SALINE LOCK REMOVED WITH CATH TIP INTACT. DISCHARGED HOME VIA WHEELCHAIR.
--- NOTE | 2019-04-26 15:59 | MORECARE ---
CASE MANAGEMENT DISCHARGE SUMMARY PATIENT: KESHA QUINONEZ UNIT: [id number] ADM DATE: 04/22/19 AGE: 63 : 51 SEX: M ROOM/BED: D.1208 AUTHOR: [facility] PHYSICIAN: REFERRING PHYSICIAN: CORA LOPEZ MD DATE OF SERVICE: 04/26/19 Discharge Plan Patient Name: KESHA QUINONEZ Facility: [facility]:[place] : 1955 Planned Disposition: Anticipated Discharge Date: Discharge Date: 04/26/2019 Expected LOS: Initial Reviewer: [id number] Initial Review Date: 04/22/2019 Generated: 04/26/19 4:59 pm Comments DCP- Discharge Planning Updated by [email or web address]: Madeline Sadie on 04/26/19 9:[address] Patient Name: KESHA QUINONEZ Admission Status: ER Accout number: [id number] Admission Date: 04-22-2019 : 1955 Admission Diagnosis:URINARY TRACT INFECTION, SITE NOT SPECIFIED Attending: CORA LOPEZ Current LOS: 4 Anticipated DC Date: Planned Disposition: Primary Insurance: [employer] PPO MCR ADVANT Discharge Planning Comments: Bodybuilder: Madeline WademanPatient Name: KESHA QUINONEZ Admission Status: ER Accout number: [id number] Admission Date: 04-22-2019 : 1955 Admission Diagnosis:URINARY TRACT INFECTION, SITE NOT SPECIFIED Attending: CORA LOPEZ Current LOS: 4 Anticipated DC Date: Planned Disposition: Primary Insurance: [employer] CHOICE PPO MCR ADVANT Discharge Planning Comments: Bodybuilder: Madeline WademanPatient Name: KESHA QUINONEZ Admission Status: ER Accout number: [id number] Admission Date: 04-22-2019 : 1955 Admission Diagnosis:URINARY TRACT INFECTION, SITE NOT SPECIFIED Attending: CORA LOPEZ Current LOS: 4 Anticipated DC Date: Planned Disposition: Primary Insurance: [employer] CHOICE PPO MCR ADVANT Discharge Planning Comments: Bodybuilder: Madeline NoelPatient Name: KESHA QUINONEZ Admission Status: ER Accout number: [id number] Admission Date: 04-22-2019 : 1955 Admission Diagnosis:URINARY TRACT INFECTION, SITE NOT SPECIFIED Attending: CORA LOPEZ Current LOS: 4 Anticipated DC Date: Planned Disposition: Primary Insurance: [employer] CHOICE PPO MCR ADVANT Discharge Planning Comments: PT WILL GO WITH AND [facility]. PT SIGNED PHAN FOR [facility]. ORDERS FAXED TO [facility]. Bodybuilder: Madeline Noel DCP- Discharge Planning Updated by [id number]: Erlinda Cooper on 04/22/19 1:[address] Patient Name: KESHA QUINONEZ Admission Status: ER Accout number: [id number] Admission Date: 04-22-2019 : 1955 Admission Diagnosis: Attending: CORA LOPEZ Current LOS: 1 Anticipated DC Date: Planned Disposition: Primary Insurance: [employer] CHOICE PPO MCR ADVANT Discharge Planning Comments: CM MET WITH PATIENT ABOUT DC NEEDS. PATIENT STATES PLANS TO DC TO HOME WITH . DENIES ANY NEEDS, CM WILL FOLLOW AND ASSIST NEEDED WITH DC PLANNING/NEEDS. Bodybuilder: Erlinda Cooper DCPIA - Discharge Planning Initial Assessment Updated by [email or web address]: Erlindachava Cooper on 04/22/19 2:23 pm * Is the patient Alert and Oriented? Yes * PCP ERIC * Pharmacy [facility] [address] * Preadmission Environment Home with Family * ADLs Independent * Equipment CPAP * List name and contact numbers for known caregivers / representatives who currently or will assist patient after discharge: KRISTEN UNDERWOOD, * Verbal permission to speak to the caregivers and representatives has been obtained from the patient. Yes * Community resources currently utilized None * Additional services required to return to the preadmission environment? No * Can the patient safely return to the preadmission environment? Yes * Has this patient been hospitalized within the prior 30 days at any hospital? 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
== END 2019-04-26 15:38 | disposition home or self-care (01) | DRG 690 ==
LOC: D.ER 05:46 → D.M3 08:01
PROVIDERS: Emergency Medicine; Family Medicine; Internal Medicine Hematology & Oncology; ADMIT Internal Medicine Nephrology; ATTEND Internal Medicine Nephrology
DX: N39.0 Urinary tract infection, site not specified (principal); D61.818 Other pancytopenia; W18.30XA Fall on same level, unspecified, initial encounter; Y92.012 Bathroom of single-family (private) house as the place of occurrence of the external cause; E78.5 Hyperlipidemia, unspecified; E11.9 Type 2 diabetes mellitus without complications; G20 Parkinson's disease; K70.30 Alcoholic cirrhosis of liver without ascites; D75.82 Heparin induced thrombocytopenia (HIT)

== ENCOUNTER 2019-06-02 08:20 | Outpatient (CLI) | payer MEDICARE ==
[~2019-06-02] VITALS: Ht 177.8 cm; Wt 106.8 kg
[~2019-06-02 08:20] MED LIST changes: +CYCLOBENZAPRINE10 MG PO; +FLOMAX0.4 MG PO; +LEVAQUIN750 MG PO
[2019-06-02 09:58] VITALS: BP 95/58; Ht 177.8 cm; Wt 106.8 kg
== END 2019-06-02 11:10 | disposition home or self-care (01) ==
LOC: D.OPS 08:20
PROVIDERS: ATTEND Internal Medicine Hematology & Oncology
DX: D61.818 Other pancytopenia (principal); D69.49 Other primary thrombocytopenia

== ENCOUNTER 2019-07-22 07:08 | Outpatient (CLI) | payer MEDICARE ==
[~2019-07-22] VITALS: Ht 177.8 cm; Wt 108.2 kg
[2019-07-22 07:34] LABS: HEMATOCRIT 39.5 % (42.0-54.0); HEMOGLOBIN 13.9 g/dL (13.5-17.5); MCHC 35.2 g/dL (31.0-37.0); MEAN PLATELET VOLUME 9.7 fL (7.4-10.4); RBC 4.34 10x6/uL (4.20-6.10); RDW 15.2 % (11.5-14.5); WBC 2.2 10x3/uL (4.8-10.8)
[2019-07-22 07:36] LABS: PLATELET COUNT 36 10x3/uL (130-400)
[2019-07-22 07:45] LABS: CALC OSMOLALITY 283 mosm/kg (275-300); CALCIUM 8.5 mg/dL (8.5-10.1); CARBON DIOXIDE 26.7 mmol/L (21.0-32.0); CHLORIDE - SERUM 109 mmol/L (98-107); CREATININE - SERUM 0.8 mg/dL (0.6-1.3); POTASSIUM - SERUM 4.2 mmol/L (3.5-5.1); SODIUM 142 mmol/L (136-145); UREA NITROGEN 12 mg/dL (7-18); eGFR NON AFRICAN AMERICAN > 90 mL/min (90-120)
[2019-07-22 07:46] LABS: GLUCOSE 119 mg/dL (74-106)
[2019-07-22] MEDS ORDERED: PROPRANOLOL HCL20 MG PO (08:10)
[2019-07-22] MEDS ORDERED: GLIMEPIRIDE1 MG PO (08:11)
[2019-07-22] MEDS ORDERED: ZANTAC300 MG PO (08:12)
[2019-07-22] MEDS ORDERED: ZETIA10 MG PO (08:12)
[2019-07-22 08:17] LABS: APTT 37.9 SECONDS (22.8-39.4)
[2019-07-22 08:21] VITALS: Ht 177.8 cm; Wt 108.2 kg
[2019-07-22 08:34] LABS: INR 1.22 (0.85-1.17); PROTIME 14.9 SECONDS (11.6-15.0)
[2019-07-22 08:36] LABS: EOSINOPHILS 2 % (0-7); LYMPHOCYTES 50 % (15-50); MONOCYTES 6 % (2-11); NEUTROPHILS 41 % (40-80); PLATELET ESTIMATE DECREASED
--- NOTE | 2019-07-22 10:51 | NUR ---
0941 VITAL SIGNS ARE BEING DOCUMENTED Q15MIN X4 AND Q30MIN X2 ON POST PROCEDURE SHEET AND IN PAPER CHART.
--- NOTE | 2019-07-22 11:58 | NUR ---
1132 IV DC'D. CATHETER TIP INTACT. PRESSURE HELD UNTIL BLEEDING STOPPED. BANDAID APPLIED.
--- NOTE | 2019-07-22 11:59 | NUR ---
1145 PT DRESSED AND READY TO GO HOME. DENIES ANY PAIN AT BX SITE. STATES HE LIVES 5 MINUTES FROM HOSPITAL AND WANTS TO WAIT TO VOID AT HOME,
== END 2019-07-22 11:55 | disposition home or self-care (01) ==
LOC: D.SP 07:08 → D.CT 09:00 → D.SP 09:00
PROVIDERS: Radiology Diagnostic Radiology; ATTEND Internal Medicine Hematology & Oncology
DX: D69.49 Other primary thrombocytopenia (principal)

== ENCOUNTER 2019-12-02 20:30 | Emergency (ER) | payer MEDICARE ==
[~2019-12-02] VITALS: Ht 177.8 cm; Wt 104.5 kg
[~2019-12-02 20:30] MED LIST changes: +GLIMEPIRIDE1 MG PO; +PROPRANOLOL HCL20 MG PO; +ZANTAC300 MG PO; +ZETIA10 MG PO
[2019-12-02 20:39] VITALS: Ht 177.8 cm; Wt 104.5 kg
[2019-12-03] VITALS: BP 122/78
== END 2019-12-03 00:04 | disposition home or self-care (01) ==
LOC: D.ER 20:30
DX: R51 Headache (principal); S01.81XA Laceration without foreign body of other part of head, initial encounter; S01.511A Laceration without foreign body of lip, initial encounter; W19.XXXA Unspecified fall, initial encounter; E11.9 Type 2 diabetes mellitus without complications; K74.60 Unspecified cirrhosis of liver; Z95.5 Presence of coronary angioplasty implant and graft; J44.9 Chronic obstructive pulmonary disease, unspecified